=== PATIENT | male | born 1980 | race Caucasian/White ===

== ENCOUNTER 2023-10-04 13:12 | Emergency (ER) | payer OTHER, SELFPAY ==
[2023-10-04] VITALS (7 sets, daily range): BP systolic 132–155; BP diastolic 99–118; BMI 30.3
--- NOTE | 2023-10-04 17:39 | ED.GENMED ---
History of Present Illness
General
Chief Complaint: Bowel Problem
Source: patient
Exam Limitations: none
Time Seen by Provider: 10/04/23 16:30
Nursing documentation reviewed up to this point in time: agreed with
Travel History
Have you had any contact with someone who has COVID-19?: No
Do you have any symptoms of coronavirus? Fever > 100 degrees, chills, cough, shortness of breath, sore throat, loss of taste or smell, muscle aches, or headache?: No
History of Present Illness
History of Present Illness:
43-year-old male with past medical history of chronic pain on Suboxone for 15 years presents to the ER for abdominal pain. He has had abdominal pain for the past several weeks but getting worse over the past several days. He does have have a
history of intermittent constipation usually moves his bowels every other day but has not noticed in 5 days. He is taking Senokot and Metamucil without relief. He reports pain is very severe when walking in fact he has to stop. HE Gets very
nauseous and sweaty with abdominal pain. He denies any fever chills.
Past History
Past History
ED Past Medical History: None; Negative Asthma, HTN, Hypercholesterolemia or NIDDM
ED Past Surgical History: Other (RLQ hernia repair at age 11)
Social History
Tobacco: Smoker
Alcohol: Occasional
Drug: None
Personal: Single
Living: with family (lives with his sister)
Review of Systems
Review of Systems
Allergies reviewed?: Yes
All Other Systems: ROS reviewed and negative except as documented in HPI and ROS
Constitutional: Reports no symptoms; Denies fever, fatigue or chills
Respiratory: Reports no symptoms
Cardiac: Reports no symptoms
ABD/GI: Reports abdominal pain, nausea and constipated; Denies vomiting or diarrhea
: Reports no symptoms; Denies flank pain, urgency or discharge
Musculoskeletal: Denies no symptoms
Skin: Reports no symptoms
Neurological: Reports no symptoms
Psychiatric: Reports no symptoms
Phy Exam
General Physical Exam
General Presentation: no apparent distress
General age: appears stated age
General Skin: warm and dry
General Habitus: normal
General Mental: alert
General Hydration: appears well hydrated
Cardiovascular Exam
Cardiovascular Exam: regular rate/rhythm, no murmur and normal peripheral pulses
Gastrointestinal Exam
Gastrointestinal Exam: soft and other (tender throughout )
Neurological Exam
Neurological Exam: alert and oriented x3
Musculoskeletal Exam
Musculoskeletal Exam: full ROM
Skin Exam
Skin Exam: normal color and warm/dry
Course
Orders/Labs/Results
Orders:
Orders
10/04/23 17:40
IV Insert/Care/Rem.- Treatment PRN
Urinalysis Reflex To Culture Urgent
0.9% Sodium Chloride 1000 ml [Nss] 1,000 ml IV BOLUS
10/04/23 17:52
Complete Blood Count/With Diff Urgent
Comprehensive Metabolic Panel Urgent
Lipase Urgent
10/04/23 18:38
CT Abd/pel (oral only)-DH Only Urgent
Comment:
Reason For Exam: worsening abd pain also with constpation
Iohexol [Omnipaque] See Protocol PO NOW STA
Abnormal Lab Results
10/04/23
17:52
WBC 11.3 H 10^3/uL
(4.8-10.8)
Abs Immat Gran (auto) 0.1 H 10^3/uL
(0-0.05)
Absolute Neuts (auto) 7.0 H 10^3/uL
(1.4-6.5)
Absolute Monos (auto) 0.7 H 10^3/uL
(0.1-0.6)
Immature Gran % 1.1 H %
(0-0.5)
Carbon Dioxide 21 L mmol/L
(22-30)
BUN 24 H mg/dl
(9-20)
Creatinine 1.6 H mg/dL
(0.7-1.3)
Glucose 109 H mg/dl
(70-99)
Total Protein 8.3 H g/dl
(6.3-8.2)
Albumin 5.1 H g/dl
(3.5-5.0)
10/04/23 17:52
10/04/23 17:52
Vital Signs
Initial and Last Documented VS:
Initial Vital Signs
Temp Pulse Resp BP Pulse Ox
98.6 F 130 20 145/107 97
10/04/23 13:13 10/04/23 13:13 10/04/23 13:13 10/04/23 13:13 10/04/23 13:13
Last Documented Vital Signs
Temp Pulse Resp BP Pulse Ox
98.6 F 90 16 155/118 92
10/04/23 13:13 10/04/23 20:42 10/04/23 20:42 10/04/23 20:00 10/04/23 20:45
MDM/Problems Addressed
Differential Diagnosis Includes:
Not limited to obstruction, constipation
MDM/Problems Addressed:
Patient complains of constipation. He is on chronic Suboxone for pain management. Patient tender on exam CAT scan was ordered which does show constipation hypomotility no acute inflammatory changes. Patient has not tried MiraLAX will DC on
MiraLAX however due to degree of constipation will also give mag citrate. In addition patient's creatinine is 1.6 his BUN is 24. This may be a component of dehydration however I did review with patient importance of outpatient follow-up with
family doctor for recheck of labs and to stay well-hydrated.
Chronic conditions affecting care:
On chronic Suboxone
*Radiology
Radiology exam reviewed: radiology read reviewed
*Pulse Oximetry
Patient hypoxic: no
*Critical Care Note
Total Time (30-74mins, 75-104mins- exclusive of procedures): Not Applicable
ED Attending Note
-
Portions of this chart may have been created with voice recognition software.� Occasional wrong word or��sound alike� substitutions may have occurred due to the inherent limitations of voice recognition software.
Discharge Plan
Departure
Patient Disposition: Home (Routine Discharge)
Date of Disposition: 10/04/23
Time of Disposition: 22:53
Patient with high blood pressure during this ER visit?: No
Condition: Fair
Covid-19: Not Applicable
Discharge Problem:
Acute constipation
Instructions: Constipation, Adult (DC), BLOOD PRESSURE
Prescriptions:
No Action
lorazepam 1 MG tablet
1 mg PO DAILY Qty: 2 0RF
Referrals:
Reji Salazar, [Family Provider] -
Activity Restrictions/Additional Instructions:
As discussed you will be given a bottle of magnesium citrate. you may take half of the bottle this evening and the additional half tomorrow morning. Stay well-hydrated. After that please take MiraLAX daily until further notice by your family
doctor. Follow-up with your family doctor in the next several days please call tomorrow to make an appointment. Your kidney function was elevated and this will need to be rechecked by your family doctor in the next week. Return if any worsening
of symptoms if worsening abdominal pain vomiting or any further concerns.
Interventions
Interventions:
*Risk Screen - Suicide Last Done: 10/04/23 16:08
*General Assessment Last Done: 10/04/23 16:08
*Neglect/Abuse Screening Last Done: 10/04/23 16:08
*ED COVID-19 Vaccine History Last Done: 10/04/23 16:08
XM-[id number]-[id number] Assessment Last Done: 10/04/23 16:08
Discharge Date and Time
Print Language: [place]
[2023-10-04] MEDS: NSS 1000 IV (17:56)
[2023-10-04 18:07] LABS: % Basophils 1.8 % (0-2); % Immature Granulocytes 1.1 % (0-0.5); % Lymphocytes 26.8 % (20.5-51.1); % Monocytes 6.4 % (1.7-9.3); % Neutrophils 61.9 % (42.2-75.2); Absolute Basophils 0.2 10^3/uL (0-0.2); Absolute Eosinophils 0.2 10^3/uL (0-0.7); Absolute Immature Granulocytes 0.1 10^3/uL (0-0.05); Absolute Monocytes 0.7 10^3/uL (0.1-0.6); Hematocrit 45.2 % (39.0-52.0); Hemoglobin 15.1 g/dL (13.0-18.0); Mean Corp Hgb Conc. 33.4 g/dL (33.0-37.0); Mean Corpuscular Hgb 27.2 pg (27.0-31.0); Mean Corpuscular Volume 81.4 fL (80.0-94.0); Mean Platelet Volume 9.5 fL (7.4-10.4); Nucleated Red Blood Cells % 0 % (-); Platelet Count 274 10^3/uL (130-400); Red Blood Cell Count 5.55 10^6/uL (4.70-6.10); Red Cell Dist. Width 13.6 % (11.5-14.5); White Blood Cell Count 11.3 10^3/uL (4.8-10.8)
[2023-10-04 18:22] LABS: ALT (SGPT) 28 U/L (0-50); AST (SGOT) 41 U/L (17-59); Albumin 5.1 g/dl (3.5-5.0); Alkaline Phosphatase 61 U/L (38-126); Blood Urea Nitrogen 24 mg/dl (9-20); Calcium 10.2 mg/dl (8.4-10.2); Carbon Dioxide 21 mmol/L (22-30); Chloride 104 mmol/L (98-107); Estimated Creatinine Clearance 73 ml/min; Glucose 109 mg/dl (70-99); Potassium 4.7 mmol/L (3.5-5.1); Sodium 138 mmol/L (135-145); Total Bilirubin 0.7 mg/dl (0.2-1.3); Total Protein 8.3 g/dl (6.3-8.2); eGFR 55.17
[2023-10-04 18:23] LABS: Lipase 54 U/L (23-300)
[2023-10-04] MEDS: OMNIPAQUE 50 ML PO (18:43)
[2023-10-04] MEDS: CITROMA 300 ML PO (23:09)
== END 2023-10-04 23:19 | disposition home or self-care (01) ==
LOC: EMR 13:12
PROVIDERS: Nurse Practitioner; EMERGENCY PHYSICIAN Emergency Medicine; FAMILY PHYSICIAN Family Medicine
DX: K59.09 Other constipation (principal); F17.200 Nicotine dependence, unspecified, uncomplicated
CPT/HCPCS: 99284; 96360; 74176; 80053; 83690; 85025